=== PATIENT | male | born 1985 | race Two or more races ===

== ENCOUNTER 2019-08-14 21:54 | Emergency (ER) | payer SELFPAY ==
[~2019-08-14] VITALS: Ht 180.3 cm; Wt 70.0 kg
[2019-08-14] MEDS ORDERED: normal saline 1000ML IV soln IVB ONE (23:10)
[2019-08-14] MEDS ORDERED: ondansetron/PF 4mg/2ml inj IV ONE (23:10)
--- NOTE | 2019-08-15 01:12 | NUR ---
Pt. ready for discharge waiting on paperwork asked to use the restroom, IV still in place. Pt. left ED without having IV removed, pt. left without signing. Pt. witnessed leaving by registration, would not stop for registration when asked for name or information. Tia notified, Dr. Moncada notified. Pt. left no contact information.
[2019-08-15 01:16] VITALS: BP 115/92
== END 2019-08-15 00:35 | disposition home or self-care (01) ==
LOC: ER 21:55
DX: R42 Dizziness and giddiness (principal); F10.10 Alcohol abuse, uncomplicated; F19.10 Other psychoactive substance abuse, uncomplicated; F41.9 Anxiety disorder, unspecified; Z87.891 Personal history of nicotine dependence; Z60.2 Problems related to living alone; Y90.9 Presence of alcohol in blood, level not specified
CPT/HCPCS: 71045; 93005; 96361; 96374; 99283; J2405; J7030

== ENCOUNTER 2024-08-06 09:22 | Emergency (ER) | payer BC ==
[~2024-08-06] VITALS: Ht 175.3 cm; Wt 72.7 kg
[2024-08-06 09:24] VITALS: TEMP 98.4
--- NOTE | 2024-08-06 09:27 | Physician Documentation ---
History of Present Illness ~ Stated Complaint: "PAIN IN PRIVATE AREA" Time Seen by MD: 09:26 OK to notify your PCP?: Yes Primary Medical Doctor: None Source: patient, RN/MD, RN notes reviewed, old records Mode of Arrival: POV Exam Limitations: no limitations HPI This patient is a 39 y/o male who presents to ED with chief complaint of left testicular pain and swelling. Patient describes this pain by stating it is similar in nature to pain he had when diagnosed with epididymitis, about 2 years ago. He states that at that time, he was treated with antibiotics, however he has continued to have similar issues on and off since then, and lately the episodes have also seemed to become more frequent. He notes he was recently tested negative for any STIs and has been monogamous with one partner for many years. He denies any penile discharge or lesions to his genital area. Patient denies any other associated symptoms at this time. Patient denies any other alleviating or exacerbating factors. Medication Reconciliation Allergies: Coded Allergies: No Known Allergies (Unverified , 08/06/24) Scheduled Doxycycline Hyclate (Doxycycline Hyclate), 1 CAP PO Q12H Past Medical History Past Medical History: Anxiety Other Past Medical History: epididymitis Past Surgical History: no surgical history Smoking Status: Unknown if ever smoked Alcohol Use: Occasionally Drug Use: other Lives with: Alone Lives In: Home Review of Systems All Other Systems at this time: Reviewed and Negative Physical Exam Physical Exam General: The patient is well developed, well nourished, nontoxic appearing and is in no acute distress. Skin: [place], warm and dry with no rashes. HEENT: Head was normocephalic and atraumatic. Eyes - pupils equal, round, reactive to light and accommodation. Extraocular movements were intact. Conjunctivae were nonicteric. The mouth and oropharynx were clear with moist mucous membranes. There were no pharyngeal exudates or erythema. Neck: Supple and nontender. There was no jugular venous distention, lympha denopathy, thyromegaly or masses. Chest: Clear to auscultation bilaterally without wheezes, rales or rhonchi. No accessory muscle use. No dullness to percussion. Heart: Rate regular and rhythmic. S1, S2. No murmurs. Palpation of the chest wall was normal. No rubs or thrills. Abdomen: Soft, nontender and nondistended. Positive bowel sounds. No guarding or rebound. No hepatosplenomegaly or palpable masses. : Normal appearing external genitalia. No erythema or swelling. Extremities: No cyanosis, clubbing or edema. The patient moves all extremities. Pulses were equal and symmetric. Neurologic: Cranial nerves II-XII were intact. Sensation was intact to light touch throughout. Motor strength was 5/5 in all four extremities. Deep tendon reflexes were intact in both upper and lower extremities. Psychologic: The patient was oriented to person, place and time. The patient demonstrated appropriate judgement and insight. Progress Progress Note RECORD REVIEW: Patient was last seen here on 08/14/2019 for dizziness. And shortness of breath. Patient was assessed and symptoms found to be likely secondary to drug and alcohol use, per HPI and patients admission to using. EKG and Chest Xray were within normal limits. Patient on examination was neurologically intact and hemodynamically stable. He was observed for a period of approximately 80 minutes prior to discharge, during which time he remained stable. Results/Orders Reviewed/noted all lab results: Yes Results/Orders Orders - TOMMY YOUNG MD Chlam/Gc Amp Ur (08/06/24 09:46) Us Testic/W/Duplex (08/06/24 09:48) Completed Orders - TOMMY YOUNG MD Urinalysis, Cult If Indicated (08/06/24 09:32) Azithromycin Tablet (Zithromax Tablet) (08/06/24 09:50) Syphilis Screen Poc (08/06/24 09:46) Us Testic/W/Duplex (08/06/24 09:48) Ceftriaxone 500 Im W/Lidocaine (Rocephin (08/06/24 09:50) Vital Signs 08/06/24 08/06/24 09:24 17:56 Temp 98.4 Pulse 78 74 Resp 16 18 B/P (MAP) 122/77 127/69 Pulse Ox 99 98 O2 Flow Rate 0 Laboratory Tests Test 08/06/24 10:06 08/06/24 10:40 Syphilis Serology Negative Urine Specimen Description Urinal Urine Color Yellow Urine Clarity Clear Urine pH 7.0 Urine Specific [place] 1.010 Urine Protein Negative Urine Glucose (UA) Negative Urine Ketones Negative Urine Occult Blood Negative Urine Nitrite Negative Urine Bilirubin Negative Urine Urobilinogen 0.2 Urine Leukocyte Esterase Negative Urine Culture Indicated Not ind Volume Urine Centrifuged 10 ml Urine Comment Re-Evaluation Re-Evaluation : Re-Evaluation: Improved Progress Patient was seen and examined. Patient is given reassurance. Patient was found to have some epididymitis. It is recurrent. Patient received a referral to Urology. Additionally patient received antibiotics both IM and oral treated for STDs GC chlamydia was also obtained. Ultrasound showed left testicular or cheilitis. EKG/XRAY/CT/US/VASC/MRI Ultrasound : Interpreted By: both Ultrasound of: testicular Impression Indication: left testicular pain Technique: Real-time ultrasound images through the scrotum. Comparison: None Findings: Right testicle measures 4.6 x 2.3 x 2.8 cm. It has normal echogenicity and echotexture, with no focal solid or cystic mass. There is normal flow on color Doppler, with normal waveforms. The right epididymal head measures 1 cm, and has no focal masses. Left testicle measures 3.9 x 2 x 3.2 cm. It has normal echogenicity and echotexture, with no focal solid or cystic mass. There is normal flow on color Doppler, with normal waveforms. The left epididymal head measures 1.3 cm, and is heterogeneous in appearance. Small left hydrocele. Increased vascularity of the left epididymis. There is no varicocele.Small left hydrocele. Impression: 1. Heterogeneous appearance of the left epididymis with increased vascularity, may represent epididymitis. 2. Small left hydrocele. Electronically Signed by:ROBERT LION MD Date & Time: 08/06/24 1123 Dictated by: ROBERT LION MD Dictation date and time: 08/06/24 1000 Primary Care Provider: NO PRIMARY CARE PROVIDER cc: TOMMY YOUNG MD ~ EDMD Dr. Young reviewed imaging and agrees with findings above. Medical Decision Making Additional info obtained from: old records Genital Diff Dx:Considerations: Include: Abscess, Balanitis, Balanoposthitis, Cellulitis, Epididymitis, Entrapment injury, Mary's gangrene, Foreign body, Facture penis, Hydrocele, Inguinal hernia, Post-op Complication, Paraphimosis, Prostatitis, Priapism, Syphilis, Testicular torsion, Torsion-epididymis, Torsion-appendiceal, Urinary retention, Urethritis, Urethritis-chlamydial, Urethritis-gonococcal, UTI, Other Departure Time of Disposition: 11:29 Disposition: HOME / SELF CARE / HOMELESS Impression: Primary Impression: Epididymitis Condition: Stable Discharge Instructions: Epididymitis Additional Instructions: Make an appointment with uroloigst, Dr. Dunaway for follow up for recurrent epididymitis. Return to ER for any new or worsening symptoms or other concerns. Referrals: MELVIN DUNAWAY MD Prescriptions Doxycycline Hyclate (Doxycycline Hyclate) 100 Mg Capsule 1 CAP PO Q12H for 14 Days, #28 CAP Prov: TOMMY YOUNG MD 08/06/24 Education Educated: Patient Educated regarding: diagnosis, treatment, need for follow up Signature Scribe Signature: No scribed Attestation: The note accurately reflects work and decisions made by me.Tommy Young MD 08/06/24 21:45 TOMMY YOUNG MD Aug 06, 2024 09:27
[2024-08-06] MEDS ORDERED: CefTRIAXone 1000mg IM Kit (w/lidocaine diluent) IM STA (09:46)
[2024-08-06] MEDS: CefTRIAXone 500MG IM Kit w/LIDOcaine IM STA (10:47)
[2024-08-06] MEDS: azithromycin 250mg tablet PO ONE (10:47)
[2024-08-06 10:58] LABS: BILIRUBIN,URINE NEGATIVE (Neg); CLARITY,URINE CLEAR (Clear); COLOR,URINE YELLOW (Yellow); GLUCOSE, URINE NEGATIVE (Neg); KETONES,URINE NEGATIVE (Neg); LEUKOCYTE ESTERASE ,URINE NEGATIVE (Neg); NITRITES, URINE NEGATIVE (Neg); OCCULT BLOOD,URINE NEGATIVE (Neg); PROTEIN,URINE NEGATIVE (Neg); UA COLLECTION TYPE URINAL; UROBILINOGEN,URINE 0.2 E.U/dL (0.2-1.0)
[2024-08-06 11:10] LABS: SYPHILIS SCREENING TEST POC NEGATIVE (Negative)
--- NOTE | 2024-08-06 11:25 | RADIOLOGY REPORT ---
Indication: left testicular pain Technique: Real-time ultrasound images through the scrotum. Comparison: None Findings: Right testicle measures 4.6 x 2.3 x 2.8 cm. It has normal echogenicity and echotexture, with no foca l solid or cystic mass. There is normal flow on color Doppler, with normal waveforms. The right epidi dymal head measures 1 cm, and has no focal masses. Left testicle measures 3.9 x 2 x 3.2 cm. It has normal echogenicity and echotexture, with no focal s olid or cystic mass. There is normal flow on color Doppler, with normal waveforms. The left epididyma l head measures 1.3 cm, and is heterogeneous in appearance. Small left hydrocele. Increased vascula rity of the left epididymis. There is no varicocele.Small left hydrocele. Impression: 1. Heterogeneous appearance of the left epididymis with increased vascularity, may represent epididym itis. 2. Small left hydrocele.
[2024-08-06] MEDS ORDERED: DOXY-225 PO (11:34)
[2024-08-06 17:56] VITALS: BP 127/69; PULSE 74; RESP 18; O2SAT 98
== END 2024-08-06 11:40 | disposition home or self-care (01) ==
LOC: ER 09:22
DX: N45.1 Epididymitis (principal)
CPT/HCPCS: 36415; 76870; 81003; 87491; 87591; 93976; 96372; 99285; J0696